=== PATIENT | female | born 1940 | race Caucasian/White ===

== ENCOUNTER 2018-11-03 09:27 | Emergency (ER) | payer MEDICARE | END 2018-11-03 09:48 | disposition left against medical advice (07) | LOC: UCEAST 09:27 | DX: Z53.21 Procedure and treatment not carried out due to patient leaving prior to being seen by health care provider (principal) ==

== ENCOUNTER 2018-11-03 10:05 | Emergency (ER) | payer MEDICARE ==
[2018-11-03] MEDS ORDERED: Pantoprazole IV* 40 MG IV ONE (10:37)
[2018-11-03] MEDS ORDERED: NS 0.9% 1000 ML** 1,000 ML IV ONE (10:37)
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
[2018-11-03 11:23] LABS: ABS Basophils 0 10^3/ul (0-0.2); ABS Eosinophils 0 10^3/ul (0-0.6); ABS Monocytes 0.4 10^3/ul (0-0.8); ABS Neutrophils 4.7 10^3/ul (1.5-7.7); ABS Nucleated RBC 0 10^3/ul; Eosinophil % 0.3 %; Hematocrit 39 % (33-41); Lymphocyte % 16.7 %; Mean Corpuscular HGB Conc 33 g/dL (31-36); Mean Corpuscular Hemoglobin 31 pg (27-31); Mean Corpuscular Volume 95 fL (80-97); Mean Platelet Volume 7.6 fL (7.4-10.4); Nucleated Red Blood Cells % 0; Platelet Count 212 10^3/uL (150-450); Red Blood Count 4.17 10^6 /uL (3.70-4.87); Red Cell Distribution Width 14 % (10.5-15); White Blood Count 6.2 10^3/uL (3.5-10.8)
[2018-11-03 11:39] LABS: ALT 24 U/L (7-52); AST 26 U/L (13-39); Albumin 4.3 g/dL (3.2-5.2); Albumin/Globulin Ratio 1.7 (1-3); Alkaline Phosphatase 72 U/L (34-104); Anion Gap 9 mmol/L (2-11); BUN/Creatinine Ratio 21.1 (8-20); Blood Urea Nitrogen 15 mg/dL (6-24); C Reactive Protein < 1.00 mg/L (<8.01); CO2 Carbon Dioxide 27 mmol/L (22-32); Calcium 9.6 mg/dL (8.6-10.3); Chloride 104 mmol/L (101-111); EGFR African American 96.8 (>60); Globulin 2.6 g/dL (2-4); Glucose 98 mg/dL (70-100); Magnesium 2.1 mg/dL (1.9-2.7); Potassium 3.6 mmol/L (3.5-5.0); Sodium 140 mmol/L (135-145); Total Protein 6.9 g/dL (6.4-8.9)
[2018-11-03 12:13] LABS: Urine Appearance Clear; Urine Bilirubin Negative (Negative); Urine Blood Negative (Negative); Urine Color Straw; Urine Glucose Negative (Negative); Urine Ketones Trace (Negative); Urine Nitrite Negative (Negative); Urine Protein Negative (Negative); Urine Specific Gravity 1.005 (1.010-1.030); Urine Urobilinogen Negative (Negative)
[2018-11-03] MEDS ORDERED: Ketorolac INJ* 30 MG/ML 1 ML VIAL IV PUSH ONE (12:39)
[2018-11-03 13:25] VITALS: BP 145/73
== END 2018-11-03 13:25 | disposition home or self-care (01) ==
LOC: ED 10:05
DX: R10.13 Epigastric pain (principal)
CPT/HCPCS: 36415; 74176; 80053; 81003; 82272; 83605; 83690; 83735; 85025; 86140; 93005; 96361; 96374; 96375; 99283; J1885

== ENCOUNTER 2019-03-07 10:09 | Emergency (ER) | payer MEDICARE ==
[2019-03-07 10:27] VITALS: BP 148/74
--- OUTSIDE RECORDS SUMMARY | 2019-03-07 10:38 | XMS REPORT | Continuity of Care Document ---
:1940 External Reference #:[id number] Author Name Ely Mayen Care Team Providers Name Role Phone Genesis Machuca MD Primary Care Physician Unavailable Payers Date Identification Numbers Payment Provider Subscriber Effective: 2017 Policy Number: [id number] Medicare Blue Ppo Sandra Portillo PayID: [id number] [address] [address] [place] [address] Problems Active Problems Provider Date Paroxysmal atrial fibrillation Genesis Machuca MD Onset: 11/08/2018 Note: Coumadin since 2005; Event monitor for a month was negative in 2014 and she was completely asymptomatic so she was taken off. 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 Aren Stafford ([email or web address]) Intestinal malabsorption Genesis Machuca MD Onset: 11/08/2018 Age related macular degeneration Genesis Machuca MD Onset: 11/08/2018 Raynaud's disease Genesis Machuca MD Onset: 11/08/2018 Dyspnea Genesis Machuca MD Onset: 11/08/2018 Osteoporosis Genesis Machuca MD Onset: 11/08/2018 Note: osteoporosis of wrist 2015; Frax 17/7.9; refused medication 2015 Social History Type Date Description Comments Sex Unknown Marital Status Lives With Spouse Occupation Retired Occupation Nurse Tobacco Use Start: Unknown Never Smoked Cigarettes Smoking Status Reviewed: 02/18/19 Never Smoked Cigarettes ETOH Use Denies alcohol use Tobacco Use Start: Unknown Patient has never smoked Recreational Drug Use Denies Drug Use Exercise Type/Frequency Does not exercise Allergies, Adverse Reactions, Alerts Active Allergies Reaction Severity Comments Date Anesthesia FEATHER SHAPER reaction 05/09/2018 Budesonide Nausea and Vomiting 05/09/2018 Clindamycin Nausea and Vomiting 05/09/2018 [place] Starch Nausea and Vomiting 05/09/2018 Dobutamine 05/09/2018 Flagyl Nausea and Vomiting 05/09/2018 IV Contrast skin reaction 05/09/2018 Milk- Nausea and Vomiting 05/09/2018 Omeprazole Nausea and Vomiting 05/09/2018 Opiod Analgesic FEATHER SHAPER reaction 05/09/2018 Pentasa Nausea and Vomiting 05/09/2018 Dabigatran skin reaction 05/09/2018 Zantac FEATHER SHAPER reaction 05/09/2018 Fentanyl And Related 07/17/2018 Banana Extract 08/06/2018 [place] Allergenic Extract 08/06/2018 Gluten 08/06/2018 Starch, Rice 08/06/2018 Medications Active Medications SIG Qnty Indications Ordering Provider Date Doxazosin Mesylate 1/2 tab by mouth Unknown 2mg as needed Tablets Acetaminophen ER take one tab by Unknown 650mg mouth every 4 Tablets ER hours as needed Vitamin E-200 1 by mouth every Unknown 200Unit day Capsules Vitamin B12 1 by mouth every Unknown 1000mcg Tablets day ER Coq10 daily Unknown 1200-1800mg Capsules Claritin 1 by mouth every Unknown 10mg Capsules day as needed Folic Acid 2 by mouth twice Unknown 1mg Tablets a day Flonase Allergy Relief one spray in each Unknown nostril 1-2 times 50mcg/Act Suspension daily. Creatine as directed Unknown Powder Vitamin D3 1 by mouth every Unknown 1000Unit Tablets day Ascorbic Acid 1 by mouth every Unknown 500mg Tablets day Miralax 17 gm every day Unknown 3350NF Powder mixed w/ 8 oz water/juice Preservision Areds 1tab by mouth Unknown twice a day Capsules Magnesium 1 by mouth every Unknown 400mg Tablets day History Medications Prednisone take 4 tabs by mouth Unknown - 08/06/2018 10mg Tablets daily for 2 days then 3 tabs daily for 2 days then 2 tabs for 2 days then 1 tab for 2 days then d/c Tylenol Extra Strength 2 by mouth as needed Unknown - 2017 500mg Tablets every 8 hours Cyanocobalamin 1 by mouth every day Unknown - Unknown Tablets Sub Carnitor 10ml twice a day Unknown - Unknown 1GM/10ML Solution Ativan take 1 tablet every 4 Unknown - Unknown 0.5mg Tablets hours hours as needed for anxiety Levocarnitine 5 mil x2 daily Unknown - 02/17/2019 1GM/10ML Solution Vital Signs Date Vital Result Comment 02/18/2019 2:27pm Height 62.5 inches 5'2.50" Weight 92.00 lb Heart Rate 73 /min BP Systolic Sitting 115 mmHg BP Diastolic Sitting 65 mmHg Respiratory Rate 16 /min Body Temperature 98.7 F O2 % BldC Oximetry 99 % BMI (Body Mass Index) 16.6 kg/m2 02/01/2019 9:56am Height 62.5 inches 5'2.50" Weight 91.00 lb Heart Rate 84 /min BP Systolic 123 mmHg BP Diastolic 71 mmHg O2 % BldC Oximetry 98 % BMI (Body Mass Index) 16.4 kg/m2 01/24/2019 11:09am Height 62.5 inches 5'2.50" Weight 91.25 lb pt own scale this am Heart Rate 80 /min BP Systolic Sitting 113 mmHg BP Diastolic Sitting 68 mmHg Body Temperature 97.4 F O2 % BldC Oximetry 96 % BMI (Body Mass Index) 16.4 kg/m2 11/06/2018 9:40am Height 62.5 inches 5'2.50" Weight 92.25 lb pt. states at home today Heart Rate 89 /min BP Systolic Sitting 127 mmHg BP Diastolic Sitting 70 mmHg Body Temperature 98.1 F Pain Level 2 abdomen/gut O2 % BldC Oximetry 98 % BMI (Body Mass Index) 16.6 kg/m2 08/06/2018 1:24pm Height 62.5 inches 5'2.50" Weight 94.00 lb Heart Rate 84 /min BP Systolic 124 mmHg BP Diastolic 77 mmHg Body Temperature 97.6 F O2 % BldC Oximetry 99 % BMI (Body Mass Index) 16.9 kg/m2 07/17/2018 9:07am Height 62.5 inches 5'2.50" Weight 95.38 lb pt. states this a.m. Heart Rate 79 /min BP Systolic Sitting 135 mmHg BP Diastolic Sitting 77 mmHg Body Temperature 98.6 F Pain Level 2 Right side jaw at ear O2 % BldC Oximetry 98 % BMI (Body Mass Index) 17.2 kg/m2 05/10/2018 8:41am Height 62.5 inches 5'2.50" Weight 97.31 lb Heart Rate 84 /min BP Systolic 124 mmHg BP Diastolic 68 mmHg Respiratory Rate 16 /min Body Temperature 97.6 F BMI (Body Mass Index) 17.5 kg/m2 Results Test Date Facility Test Result H/L Range Note CBC Auto Diff 02/01/2019 [facility] White Blood 5.5 10^3/uL N 3.5-10.[address] [place] [address] [phone] Red Blood Count 4.20 10^6/uL N 3.70-4.87 Hemoglobin 13.4 g/dL N 12.0-16.0 Hematocrit 40 % N 35-47 Mean Corpuscular Volume 96 fL N 80-97 Mean Corpuscular Hemoglobin 32 pg High 27-31 Mean Corpuscular HGB Conc 33 g/dL N 31-36 Red Cell Distribution Width 14 % N 10-15 Platelet Count 212 10^3/uL N 150-450 Mean Platelet Volume 8.1 fL N 7.4-10.4 Abs Neutrophils 3.7 10^3/uL N 1.5-7.7 Abs Lymphocytes 1.3 10^3/uL N 1.0-4.8 Abs Monocytes 0.5 10^3/uL N 0-0.8 Abs Eosinophils 0.0 10^3/uL N 0-0.6 Abs Basophils 0.0 10^3/uL N 0-0.2 Abs Nucleated RBC 0.0 10^3/uL Granulocyte % 66.6 % Lymphocyte % 23.5 % Monocyte % 8.3 % Eosinophil % 0.8 % Basophil % 0.8 % Nucleated Red Blood Cells % 0.0 Laboratory test finding 02/01/2019 [facility] Amylase 47 U/L N 29-[address] [place] [address] [phone] Lipase 27 U/L N 11.0-82.0 Comp Metabolic Panel 11/03/2018 [facility] Sodium 140 mmol/L N 135-[address] [place] [address] [phone] Potassium 3.6 mmol/L N 3.5-5.0 Chloride 104 mmol/L N 101-111 Co2 Carbon Dioxide 27 mmol/L N 22-32 Anion Gap 9 mmol/L N 2-11 Glucose 98 mg/dL N 70-100 Blood Urea Nitrogen 15 mg/dL N 6-24 Creatinine 0.71 mg/dL N 0.51-0.95 BUN/Creatinine Ratio 21.1 High 8-20 Calcium 9.6 mg/dL N 8.6-10.3 Total Protein 6.9 g/dL N 6.4-8.9 Albumin 4.3 g/dL N 3.2-5.2 Globulin 2.6 g/dL N 2-4 Albumin/Globulin Ratio 1.7 N 1-3 Total Bilirubin 0.50 mg/dL N 0.2-1.0 Alkaline Phosphatase 72 U/L N 34-104 Alt 24 U/L N 7-52 Ast 26 U/L N 13-39 Egfr Non- 80.0 >60 Egfr 96.8 >60 1 Laboratory test 11/03/2018 [facility] Magnesium 2.1 mg/dL N 1.9-2.[address] [place] [address] [phone] Lipase 24 U/L N 11.0-82.0 C Reactive Protein < 1.00 mg/L N <8.01 Lactic Acid 0.9 mmol/L N 0.5-2.0 2 CBC Auto Diff 11/03/2018 [facility] White Blood 6.2 10^3/uL N 3.5-10.[address] [place] [address] [phone] Red Blood Count 4.17 10^6/uL N 3.70-4.87 Hemoglobin 13.0 g/dL N 12.0-16.0 Hematocrit 39 % N 33-41 Mean Corpuscular Volume 95 fL N 80-97 Mean Corpuscular Hemoglobin 31 pg N 27-31 Mean Corpuscular HGB Conc 33 g/dL N 31-36 Red Cell Distribution Width 14 % N 10.5-15 Platelet Count 212 10^3/uL N 150-450 Mean Platelet Volume 7.6 fL N 7.4-10.4 Abs Neutrophils 4.7 10^3/uL N 1.5-7.7 Abs Lymphocytes 1.0 10^3/uL N 1.0-4.8 Abs Monocytes 0.4 10^3/uL N 0-0.8 Abs Eosinophils 0 10^3/uL N 0-0.6 Abs Basophils 0 10^3/uL N 0-0.2 Abs Nucleated RBC 0 10^3/uL Granulocyte % 76.4 % Lymphocyte % 16.7 % Monocyte % 5.9 % Eosinophil % 0.3 % Basophil % 0.7 % Nucleated Red Blood Cells % 0 Urinalysis Profile 11/03/2018 [facility] Urine Color Straw [address] [place] [address] [phone] Urine Appearance Clear Urine Specific Bradford 1.005 Low 1.010-1.030 Urine pH 7.0 N 5-9 Urine Urobilinogen Negative Negative Urine Ketones Trace Abnormal Negative Urine Protein Negative Negative Urine Leukocytes Negative Negative Urine Blood Negative Negative Urine Nitrite Negative Negative Urine Bilirubin Negative Negative Urine Glucose Negative Negative Stool Occult Blood 11/03/2018 [facility] Stool Occult SEE RESULT [address] Blood, [place] [address] [phone] Laboratory test 05/10/2018 [facility] Surgical SEE RESULT [address] [place] [address] [phone] 1 Because ethnic data is not always readily available, this report includes an eGFR for both -Americans and non- Americans. The National Kidney Disease Education Program (NKDEP) does not endorse the use of the MDRD equation for patients that are not between the ages of 18 and 70, are , have extremes of body size, muscle mass, or nutritional status, or are non- or non-. According to the National Kidney Foundation, irrespective of diagnosis, the stage of the disease is based on the level of kidney function: Stage Description GFR(mL/min/1.73 m(2)) 1 Kidney damage with normal or decreased GFR 90 2 Kidney damage with mild decrease in GFR 60-89 3 Moderate decrease in GFR 30-59 4 Severe decrease in GFR 15-29 5 Kidney failure <15 (or dialysis) 2 OHS Severe Sepsis and Septic Shock Management Bundle Measure requires all lactic acids initially measuring >2.0 mmol/L be repeated. 3 SEE RESULT BELOW Name: SANDRA PORTILLO : [address]: Devin Lentz MD Acct: [id number] Unit: [id number] AGE: 78 Location: ED Re11/03/18 SEX: F Status: REG ER SPEC: [id number] JENNIFER: 11/03/18-[address] [facility] [address]: Devin Lentz MD REQ: [id number] RECD: 11/03/18 STATUS: ANA LUISA NELSON DR: Genesis Machuca MD _ SOURCE: STOOL SPDESC: ORDERED: Occult Bl, Diag Procedure Result Reported Site Stool Occult Blood (1) Final 11/03/18- 1045 ML Stool Occult Blood Negative * ML - Main Lab . END OF REPORT DEPARTMENT OF PATHOLOGY, [address] [place] [address] Jian Leiva M.D. Director [facility] # [id number] 4 SEE RESULT BELOW Name: SANDRA PORTILLO : [address]: Saurabh Nixon MD Acct: [id number] Unit: [id number] AGE: 78 Location: [facility] Re05/10/18 SEX: F Status: REG REF SPEC: [id number] JENNIFER: 05/10/18-[address] [facility] [address]: Saurabh Nixon MD REQ: [id number] RECD: 05/10/18-1210 STATUS: CLAIR NELSON DR: Aren Stafford Jr, MD _ ORDERED: LEVEL 4 COMMENTS: [id number] FINAL DIAGNOSIS Right temporal artery, biopsy: -- Benign arterial tissue with no significant pathologic abnormalities; see comment. COMMENT: Histologic sections show muscular arterial tissue with an intact internal elastic lamina and no evidence of significant inflammation. 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 CLINICAL HISTORY No history given GROSS DESCRIPTION The specimen is received in formalin labeled, Right Temporal Artery Biopsy, and consists of a 1.8 x 0.1 cm nicholas tubular soft tissue fragment which is serially sectioned and entirely submitted in one cassette. Signed by and Reported on: Alina Murry MD 05/11/18 0945 END OF REPORT DEPARTMENT OF PATHOLOGY, [address] [place] [address] Jian Leiva M.D. 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 Office Visit 01/24/2019 [facility] Internal Medicine - Genesis Machuca, R10.84 Generalized 11:00a Cielo ROGERS abdominal pain Office Visit 11/06/2018 [facility] Internal Medicine - [facility] Sven, I73.00 Raynaud's 9:40a Cielo ROGERS syndrome without gangrene I48.0 Paroxysmal atrial fibrillation K90.49 Malabsorption due to intolerance, not elsewhere classified G71.3 Mitochondrial myopathy, not elsewhere classified R10.13 Epigastric pain Office Visit 08/06/2018 1:30p [facility] Internal Genesisadalberto Machuca, R06.02 Shortness of breath Medicine - MD Niob Office Visit 07/17/2018 9:00a [facility] Internal Genesis Machuca, G71.3 Mitochondrial Medicine - MD myopathy, not Ccmob elsewhere classified K90.49 Malabsorption due to intolerance, not elsewhere classified H35.30 Unspecified macular degeneration I48.0 Paroxysmal atrial fibrillation I73.00 Raynaud's syndrome without gangrene Z12.11 Encounter for screening for malignant neoplasm of colon Z12.31 Encntr screen mammogram for malignant neoplasm of breast Plan of Treatment Future Appointment(s):04/05/2019 9:15 am - Rocco Lancaster MD at [facility] Gastroenterology
--- OUTSIDE RECORDS SUMMARY | 2019-03-07 10:38 | XMS REPORT | Continuity of Care Document ---
:1940 External Reference #:[id number] Author Name AmandeepuriLisa Care Team Providers Name Role Phone Genesis Machuca MD Primary Care Physician Unavailable Payers Date Identification Numbers Payment Provider Subscriber Effective: 2017 Policy Number: [id number] Medicare Blue Ppo Sandra Portillo PayID: [id number] [address] [address] [place] [address] Problems Active Problems Provider Date Paroxysmal atrial fibrillation Genesis Machuca MD Onset: 11/08/2018 Note: Coumadin since 2005; Event monitor for a month was negative in 2014 and she was completely asymptomatic so she was taken off. 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 Aren Stafford ([email or web address]) Intestinal malabsorption Genesis Machuca MD Onset: 11/08/2018 [...] Unknown Never Smoked Cigarettes Smoking Status Reviewed: 03/01/19 Never Smoked Cigarettes ETOH Use Denies alcohol use Tobacco Use Start: Unknown Patient has never smoked Recreational Drug Use Denies Drug Use Exercise Type/Frequency Does not exercise Allergies, Adverse Reactions, Alerts Active Allergies Reaction Severity Comments Date Anesthesia Malignant hyperthermia Severe 05/09/2018 Budesonide Nausea and Vomiting 05/09/2018 Clindamycin Nausea and Vomiting 05/09/2018 [place] Starch Nausea and Vomiting 05/09/2018 Dobutamine 05/09/2018 Flagyl Nausea and Vomiting 05/09/2018 IV Contrast skin reaction 05/09/2018 Milk- Nausea and Vomiting 05/09/2018 Omeprazole Nausea and Vomiting 05/09/2018 Opiod Analgesic CELLAR SUPERVISOR reaction 05/09/2018 Pentasa Nausea and Vomiting 05/09/2018 Dabigatran skin reaction 05/09/2018 Zantac CELLAR SUPERVISOR reaction 05/09/2018 Fentanyl And Related 07/17/2018 Banana Extract 08/06/2018 [place] Allergenic Extract 08/06/2018 Gluten 08/06/2018 Starch, Rice [...] Solution Vital Signs Date Vital Result Comment 03/01/2019 10:38am Height 62.5 inches 5'2.50" Weight 90.00 lb Heart Rate 78 /min BP Systolic Sitting 126 mmHg BP Diastolic Sitting 74 mmHg Body Temperature 97.9 F O2 % BldC Oximetry 98 % BMI (Body Mass Index) 16.2 kg/m2 02/18/2019 2:27pm Height 62.5 inches 5'2.50" Weight [...] H/L Range Note CBC Auto Diff 02/01/2019 [facility] White Blood 5.5 10^3/uL N 3.5-10.[address] [place] [address] [phone] Red Blood Count 4.20 10^6/uL N 3.70-4.87 [...] Cells % 0.0 Laboratory test finding 02/01/2019 [facility] Amylase 47 U/L N 29-[address] [place] [address] [phone] Lipase 27 U/L N 11.0-82.0 Comp Metabolic Panel 11/03/2018 [facility] Sodium 140 mmol/L N 135-[address] [place] [address] [phone] Potassium 3.6 mmol/L N 3.5-5.0 Chloride 104 [...] Egfr 96.8 >60 1 Laboratory test 11/03/2018 [facility] Magnesium 2.1 mg/dL N 1.9-2.[address] [place] [address] [phone] Lipase 24 U/L N 11.0-82.0 C Reactive Protein < 1.00 mg/L N <8.01 Lactic Acid 0.9 mmol/L N 0.5-2.0 2 CBC Auto Diff 11/03/2018 [facility] White Blood 6.2 10^3/uL N 3.5-10.[address] [place] [address] [phone] Red Blood Count 4.17 10^6/uL N 3.70-4.87 [...] Blood Cells % 0 Urinalysis Profile 11/03/2018 [facility] Urine Color Straw [address] [place] [address] [phone] Urine Appearance Clear Urine Specific [place] 1.005 Low 1.010-1.030 Urine pH 7.0 N 5-9 Urine Urobilinogen Negative Negative Urine Ketones Trace Abnormal Negative Urine Protein Negative Negative Urine Leukocytes Negative Negative Urine Blood Negative Negative Urine Nitrite Negative Negative Urine Bilirubin Negative Negative Urine Glucose Negative Negative Stool Occult Blood 11/03/2018 [facility] Stool Occult SEE RESULT [address] Blood, [place] [address] [phone] Laboratory test 05/10/2018 [facility] Surgical SEE RESULT [address] [place] [address] [phone] 1 Because ethnic data is not always [...] 5 Kidney failure <15 (or dialysis) 2 [place] Severe Sepsis and Septic Shock Management Bundle Measure requires all lactic acids initially measuring >2.0 mmol/L be repeated. 3 SEE RESULT BELOW Name: SANDRA PORTILLO : [address]: Devin Lentz MD Acct: [id number] Unit: [id number] AGE: 78 Location: ED Re11/03/18 SEX: F Status: REG ER SPEC: [id number] JENNIFER: 11/03/18-1030 [facility] DR: Devin Lentz MD REQ: [id number] RECD: 11/03/18-1040 STATUS: COMP MEHDIHR DR: Genesis Machuca MD _ SOURCE: STOOL SPDESC: ORDERED: Occult Bl, Diag Procedure Result Reported Site Stool Occult Blood (1) Final 11/03/18- 1045 ML Stool Occult Blood Negative * ML - Main Lab . END OF REPORT DEPARTMENT OF PATHOLOGY, [address] [place] [address] Jian Leiva M.D. Director [facility] # [id number] 4 SEE RESULT BELOW Name: SANDRA PORTILLO : [address]: Saurabh Nixon MD Acct: [id number] Unit: [id number] AGE: 78 Location: [facility] Re05/10/18 SEX: F Status: REG REF SPEC: [id number] JENNIFER: 05/10/18-[address] [facility] DR: Saurabh Nixon MD REQ: [id number] RECD: 05/10/18-1210 STATUS: CLAIR NELSON DR: Aren Stafford Jr, MD _ ORDERED: LEVEL 4 COMMENTS: [id number] FINAL DIAGNOSIS Right temporal artery, biopsy: -- [...] 0945 END OF REPORT DEPARTMENT OF PATHOLOGY, [address] [place] [address] Jian Leiva M.D. Director [facility] # [id number] Procedures Date Code Description Status 05/10/2018 59999 Ligation Or Biopsy Temporal Artery Completed 08/21/2011 33311590 Colonoscopy Completed Encounters Type Date Location Provider Dx Diagnosis Office Visit 02/18/2019 [facility] Gastroenterology Selam Aguilera NP R10.13 Epigastric pain 2:30p G71.3 Mitochondrial myopathy, not elsewhere classified R10.84 Generalized abdominal pain R64 Cachexia R63.4 Abnormal weight loss Office Visit 02/01/2019 [facility] Gastroenterology Selam R10.11 Right upper 9:45a MINA Aguilera quadrant pain Office Visit 01/24/2019 [facility] Internal Medicine Genesis Sven, R10.84 Generalized 11:00a - Cielo ROGERS abdominal pain Office Visit 11/06/2018 [facility] Internal Medicine Genesis Cornejoaz, I73.00 Raynaud' s 9:40a - Cielo ROGERS syndrome without gangrene I48.0 Paroxysmal atrial fibrillation K90.49 Malabsorption due to intolerance, not elsewhere classified G71.3 Mitochondrial myopathy, not elsewhere classified R10.13 Epigastric pain Office Visit 08/06/2018 1:30p [facility] Internal Genesis Sven, R06.02 Shortness of breath Medicine - MD Ccmob Office Visit 07/17/2018 9:00a [facility] Internal Genesis Cornejoaz, G71.3 Mitochondrial Medicine - MD myopathy, not Ccmob elsewhere classified K90.49 Malabsorption due to intolerance, not elsewhere classified H35.30 Unspecified macular degeneration I48.0 Paroxysmal atrial fibrillation I73.00 Raynaud's syndrome without gangrene Z12.11 Encounter for screening for malignant neoplasm of colon Z12.31 Encntr screen mammogram for malignant neoplasm of breast Plan of Treatment Future Appointment(s):04/03/2019 8:15 am - Rocco Lancaster MD at [facility] [id number]/16/2019 9:15 am - Rocco Lancaster MD at [facility] Gastroenterology
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
[2019-03-07 12:05] LABS: ABS Lymphocytes 1.4 10^3/ul (1.0-4.8); ABS Monocytes 0.4 10^3/ul (0-0.8); ABS Neutrophils 3.1 10^3/ul (1.5-7.7); Eosinophil % 0.9 %; Hematocrit 39 % (35-47); Lymphocyte % 27.7 %; Mean Corpuscular HGB Conc 34 g/dL (31-36); Mean Corpuscular Hemoglobin 32 pg (27-31); Mean Corpuscular Volume 96 fL (80-97); Mean Platelet Volume 7.3 fL (7.4-10.4); Nucleated Red Blood Cells % 0.1; Platelet Count 186 10^3/uL (150-450); Red Blood Count 4.06 10^6 /uL (3.70-4.87); Red Cell Distribution Width 14 % (10-15); White Blood Count 4.9 10^3/uL (3.5-10.8)
== END 2019-03-07 12:12 | disposition home or self-care (01) ==
LOC: ED 10:09
DX: R19.7 Diarrhea, unspecified (principal); I73.00 Raynaud's syndrome without gangrene; Z79.899 Other long term (current) drug therapy; Z88.5 Allergy status to narcotic agent; Z88.8 Allergy status to other drugs, medicaments and biological substances; Z88.4 Allergy status to anesthetic agent; Z88.1 Allergy status to other antibiotic agents; Z91.041 Radiographic dye allergy status
CPT/HCPCS: 36415; 82270; 85025; 99282

== ENCOUNTER 2022-09-08 13:40 | Observation (INO) ==
[2022-09-08] MEDS ORDERED: Ondansetron 4 mg VIAL 2 MG/ML 2 ml VIAL IV ONE (14:25)
[2022-09-08] MEDS ORDERED: NS 0.9% 1000 ml BAG 1,000 ML IV ONE (14:25)
[2022-09-08 15:04] LABS: ABS Lymphocytes 0.7 10^3/ul (1.0-4.8); ABS Monocytes 0.4 10^3/ul (0-0.8); ABS Neutrophils 8.3 10^3/ul (1.5-7.7); Eosinophil % 0.2 %; Hematocrit 29 % (35-47); Hemoglobin 9.6 g/dL (12.0-16.0); Lymphocyte % 7.8 %; Mean Corpuscular HGB Conc 33 g/dL (31-36); Mean Corpuscular Hemoglobin 32 pg (27-31); Mean Corpuscular Volume 97 fL (80-97); Mean Platelet Volume 7.1 fL (7.4-10.4); Platelet Count 390 10^3/uL (150-450); Red Blood Count 3.03 10^6 /uL (3.70-4.87); Red Cell Distribution Width 16 % (10-15); White Blood Count 9.6 10^3/uL (3.5-10.8)
[2022-09-08 15:55] LABS: Albumin 3.8 g/dL (3.2-5.2); Albumin/Globulin Ratio 1.7 (1-3); C Reactive Protein 10.69 mg/L (<8.01); Calcium 9.3 mg/dL (8.6-10.3); Globulin 2.2 g/dL (2-4); Potassium 4.1 mmol/L (3.5-5.0); Total Bilirubin 0.4 mg/dL (0.2-1.0); eGFR CKD-EPI 91.8 (>60)
[2022-09-08 16:46] LABS: Urine Appearance Clear; Urine Bilirubin Negative (Negative); Urine Blood Negative (Negative); Urine Color Yellow; Urine Glucose Negative (Negative); Urine Ketones Trace (Negative); Urine Nitrite Negative (Negative); Urine Protein Negative (Negative); Urine Urobilinogen Negative (Negative)
[2022-09-08] MEDS ORDERED: Pantoprazole 80 mg in NS BAG 80 MG/250 ML BAG IV ONE (17:35)
[2022-09-08] MEDS ORDERED: Pantoprazole VIAL 40 MG VIAL IV ONE (17:35)
[2022-09-08] MEDS ORDERED: Magnesium Hydroxide LIQ 30 ML UDC PO PRN (20:12)
[2022-09-08 21:30] LABS: Hematocrit 24 % (35-47); Hemoglobin 7.8 g/dL (12.0-16.0)
[2022-09-08] MEDS ORDERED: Acetaminophen IV 1 GM/100ML 600 MG/60 ML BAG IV PRN (23:14)
[2022-09-08 23:55] LABS: Ferritin 48.6 ng/mL (11-307)
[2022-09-09 01:41] LABS: Hematocrit 26 % (35-47); Hemoglobin 8.3 g/dL (12.0-16.0)
[2022-09-09 06:17] LABS: Hematocrit 24 % (35-47); Hemoglobin 8.2 g/dL (12.0-16.0); Mean Corpuscular HGB Conc 34 g/dL (31-36); Mean Corpuscular Hemoglobin 33 pg (27-31); Mean Corpuscular Volume 97 fL (80-97); Mean Platelet Volume 7.3 fL (7.4-10.4); Platelet Count 338 10^3/uL (150-450); Red Cell Distribution Width 16 % (10-15); White Blood Count 7.4 10^3/uL (3.5-10.8)
[2022-09-09 06:19] LABS: ABS Monocytes 0.5 10^3/ul (0-0.8); ABS Neutrophils 5.9 10^3/ul (1.5-7.7); Eosinophil % 0.6 %; Lymphocyte % 13.7 %
[2022-09-09 06:33] LABS: Calcium 8.5 mg/dL (8.6-10.3); Potassium 3.9 mmol/L (3.5-5.0)
[2022-09-09] MEDS: KCL 10 MEQ/50 ML IVPREMIX 10 MEQ/50 ML BAG IV ONE ×2 (08:55→10:15)
[2022-09-09 11:25] VITALS: BP 112/64
[2022-09-09 12:54] LABS: Corrected Retic Count 1.1 % (0.5-1.5); Hematocrit for Retic CNT 24 % (35-47); Immature Retic Fraction 0.53; RBC Retic Count 2.47 10^6/uL (3.70-4.87)
[2022-09-09 13:06] LABS: Folate 9.65 ng/mL (5.90-24.80)
[2022-09-09] MEDS ORDERED: Pantoprazole 80 mg in NS BAG 80 MG/250 ML BAG IV SCH (16:00)
[2022-09-12 22:36] LABS: Tissue Transglutaminase IgA Ab <1.2 U/mL
[2022-09-12 22:53] LABS: Immunoglobulin A 140 mg/dL (61 - 356)
== END 2022-09-09 18:15 | disposition home or self-care (01) ==
LOC: EDHOLD 13:40 → ED 13:40 → SUATTDRO 18:31 → EDHOLD 09-09 00:22 → SSU 09-09 00:52
PROVIDERS: ADMIT Internal Medicine; ATTEND Internal Medicine

== ENCOUNTER 2022-09-20 10:49 | Inpatient (IN) ==
[2022-09-20 13:07] LABS: Hematocrit 19 % (35-47); Hemoglobin 6.2 g/dL (12.0-16.0); Mean Corpuscular HGB Conc 32 g/dL (31-36); Mean Corpuscular Hemoglobin 32 pg (27-31); Mean Corpuscular Volume 98 fL (80-97); Platelet Count 433 10^3/uL (150-450); Red Blood Count 1.97 10^6 /uL (3.70-4.87); Red Cell Distribution Width 17 % (10-15); White Blood Count 5.2 10^3/uL (3.5-10.8)
[2022-09-20 13:49] LABS: Albumin 3.6 g/dL (3.2-5.2); Albumin/Globulin Ratio 1.6 (1-3); C Reactive Protein 4.64 mg/L (<8.01); Creatinine, Serum 0.61 mg/dL (0.51-0.95); Globulin 2.2 g/dL (2-4); Potassium 3.7 mmol/L (3.5-5.0); Total Bilirubin 0.2 mg/dL (0.2-1.0); Total Protein 5.8 g/dL (6.4-8.9); eGFR CKD-EPI 90.3 (>60)
[2022-09-20 13:52] LABS: ABS Basophils 0.1 10^3/ul (0-0.2); ABS Lymphocytes 0.9 10^3/ul (1.0-4.8); ABS Monocytes 0.3 10^3/ul (0-0.8); ABS Neutrophils 3.9 10^3/ul (1.5-7.7); Eosinophil % 0.5 %; Lymphocyte % 17.1 %
[2022-09-20] MEDS: COENZYME Q10 300 MG PO SCH ×2 (17:47→21:24)
[2022-09-20 18:25] LABS: TSH Ultra Thyroid Stim Horm 1.08 mcIU/mL (0.34-5.60)
[2022-09-20 18:27] LABS: Free T4 0.78 ng/dL (0.61-1.12)
[2022-09-20 18:37] LABS: Folate 11.55 ng/mL (5.90-24.80)
[2022-09-20] MEDS: Pantoprazole VIAL 40 MG VIAL IV SCH (21:21)
[2022-09-20] MEDS: Multivitamins/Minera Areds(NF) CAP PO SCH (21:24)
[2022-09-20] MEDS ORDERED: Haloperidol 5 mg/ml SDV IV/IM 5 MG/ML AMP IM PRN (22:06)
[2022-09-20] MEDS ORDERED: Haloperidol 5 mg/ml SDV IV/IM 5 MG/ML AMP IM ONE (22:06)
[2022-09-21 00:35] LABS: Hematocrit 25 % (35-47); Hemoglobin 7.8 g/dL (12.0-16.0); Mean Corpuscular HGB Conc 32 g/dL (31-36); Mean Corpuscular Hemoglobin 30 pg (27-31); Mean Corpuscular Volume 93 fL (80-97); Mean Platelet Volume 7.1 fL (7.4-10.4); Platelet Count 374 10^3/uL (150-450); Red Blood Count 2.65 10^6 /uL (3.70-4.87); Red Cell Distribution Width 22 % (10-15); White Blood Count 4.8 10^3/uL (3.5-10.8)
[2022-09-21 00:36] LABS: Corrected Retic Count 1.6 % (0.5-1.5); Hematocrit for Retic CNT 24 % (35-47); Immature Retic Fraction 0.58; RBC Retic Count 2.63 10^6/uL (3.70-4.87)
[2022-09-21 06:09] LABS: ABS Basophils 0.1 10^3/ul (0-0.2); ABS Eosinophils 0.1 10^3/ul (0-0.6); ABS Lymphocytes 1.6 10^3/ul (1.0-4.8); ABS Monocytes 0.4 10^3/ul (0-0.8); ABS Neutrophils 3.3 10^3/ul (1.5-7.7); Eosinophil % 1.4 %; Hematocrit 23 % (35-47); Hemoglobin 7.6 g/dL (12.0-16.0); Lymphocyte % 28.8 %; Mean Corpuscular HGB Conc 33 g/dL (31-36); Mean Corpuscular Hemoglobin 31 pg (27-31); Mean Corpuscular Volume 92 fL (80-97); Mean Platelet Volume 7.2 fL (7.4-10.4); Platelet Count 368 10^3/uL (150-450); Red Blood Count 2.49 10^6 /uL (3.70-4.87); Red Cell Distribution Width 22 % (10-15); White Blood Count 5.4 10^3/uL (3.5-10.8)
[2022-09-21 06:25] LABS: Calcium 8.7 mg/dL (8.6-10.3); Creatinine, Serum 0.59 mg/dL (0.51-0.95); Potassium 3.7 mmol/L (3.5-5.0)
[2022-09-21] MEDS ORDERED: Propofol 0 MG/0 ML BTL ONE (07:46)
[2022-09-21] MEDS ORDERED: Lidocaine 2% PF 5 ML VIAL ONE (07:47)
[2022-09-21] MEDS ORDERED: Cyanocobalamin INJ 1,000 MCG/ML VIAL 1 ML VIAL IM ONE (08:30)
[2022-09-21] MEDS ORDERED: Propofol 10 MG/ML 20 ML BTL ONE (09:08)
[2022-09-21] MEDS: COENZYME Q10 300 MG PO SCH ×4 (11:15→19:57)
[2022-09-21] MEDS: Multivitamins/Minera Areds(NF) CAP PO SCH ×2 (11:16→19:57)
[2022-09-21] MEDS: Cholecalciferol (VIT D3) 1,000 unit TAB PO SCH (11:17)
[2022-09-21] MEDS: Pantoprazole VIAL 40 MG VIAL IV SCH ×2 (11:17→19:53)
[2022-09-21 17:21] LABS: Hematocrit 26 % (35-47); Hemoglobin 8.3 g/dL (12.0-16.0)
[2022-09-22 01:36] LABS: Hematocrit 22 % (35-47); Hemoglobin 7.3 g/dL (12.0-16.0)
[2022-09-22 06:07] LABS: ABS Eosinophils 0.1 10^3/ul (0-0.6); ABS Lymphocytes 1.3 10^3/ul (1.0-4.8); ABS Monocytes 0.4 10^3/ul (0-0.8); ABS Neutrophils 3.6 10^3/ul (1.5-7.7); Eosinophil % 1.7 %; Hematocrit 24 % (35-47); Lymphocyte % 23.6 %; Mean Corpuscular HGB Conc 34 g/dL (31-36); Mean Corpuscular Hemoglobin 31 pg (27-31); Mean Corpuscular Volume 92 fL (80-97); Mean Platelet Volume 7.3 fL (7.4-10.4); Platelet Count 392 10^3/uL (150-450); Red Blood Count 2.58 10^6 /uL (3.70-4.87); Red Cell Distribution Width 21 % (10-15); White Blood Count 5.4 10^3/uL (3.5-10.8)
[2022-09-22 07:47] VITALS: BP 114/71
[2022-09-22 08:06] LABS: Total Iron Binding Capacity 307 mcg/dL (250-450); Transferrin 219 mg/dL (203-362)
[2022-09-22 08:09] LABS: % Iron Saturation 7 % (15-55); Iron < 20 ug/dL (50-212); Unsaturated Iron Binding 287 ug/dL
[2022-09-22] MEDS: Cholecalciferol (VIT D3) 1,000 unit TAB PO SCH (09:15)
[2022-09-22] MEDS: Pantoprazole VIAL 40 MG VIAL IV SCH (09:15)
[2022-09-22] MEDS: Multivitamins/Minera Areds(NF) CAP PO SCH (09:17)
[2022-09-22] MEDS: COENZYME Q10 300 MG PO SCH (09:17)
[2022-09-22] MEDS ORDERED: Iron Sucrose 200 MG in NS 0.9% 100 ml BAG 100 ML IVPB ONE (10:00)
[2022-09-22 12:15] LABS: Ferritin 30.8 ng/mL (11-307)
== END 2022-09-22 11:15 | disposition home or self-care (01) | DRG 812 ==
LOC: ED 10:49 → SUATTDRO 16:35 → EDHOLD 16:35 → MED 23:56
PROVIDERS: ADMIT Family Medicine; ATTEND Student in an Organized Health Care Education/Training Program
PROC: O.GIEGD (2022-09-21 10:25)

== ENCOUNTER 2022-09-25 19:21 | Inpatient (IN) ==
[2022-09-25] MEDS ORDERED: NS 0.9% 1000 ml BAG 1,000 ML IV ONE (20:22)
[2022-09-25 20:26] LABS: INR 1.08 (0.88-1.18)
[2022-09-25 20:48] LABS: Hematocrit 17 % (35-47); Hemoglobin 5.3 g/dL (12.0-16.0); Mean Corpuscular HGB Conc 32 g/dL (31-36); Mean Corpuscular Hemoglobin 30 pg (27-31); Mean Corpuscular Volume 94 fL (80-97); Mean Platelet Volume 7.1 fL (7.4-10.4); Platelet Count 312 10^3/uL (150-450); Red Blood Count 1.78 10^6 /uL (3.70-4.87); Red Cell Distribution Width 20 % (10-15); White Blood Count 10.1 10^3/uL (3.5-10.8)
[2022-09-25 21:02] LABS: Albumin/Globulin Ratio 2.1 (1-3); Calcium 8.1 mg/dL (8.6-10.3); Creatinine, Serum 0.63 mg/dL (0.51-0.95); Globulin 1.4 g/dL (2-4); Potassium 3.5 mmol/L (3.5-5.0); Total Bilirubin 0.2 mg/dL (0.2-1.0); Total Protein 4.4 g/dL (6.4-8.9); eGFR CKD-EPI 89.6 (>60)
[2022-09-25 21:30] LABS: Venous Bicarbonate HCO3 24.5 mmol/L (24-28)
[2022-09-25 21:48] LABS: Anisocytosis 2+; Hypochromasia 1+
[2022-09-25 21:49] LABS: ABS Basophils 0.1 10^3/ul (0-0.2); ABS Monocytes 0.5 10^3/ul (0-0.8); ABS Neutrophils 8.5 10^3/ul (1.5-7.7); Eosinophil % 0.3 %; Lymphocyte % 10.2 %
[2022-09-25 21:57] LABS: Activated Partial Thrombo Time 25.3 seconds (26.0-38.0)
[2022-09-25 21:57] LABS: High Sensitivity Troponin 1 Hr 23 pg/mL (<15)
[2022-09-25 22:11] LABS: C Reactive Protein 20.75 mg/L (<8.01); Magnesium 1.9 mg/dL (1.9-2.7)
[2022-09-25] MEDS ORDERED: Pantoprazole VIAL 40 MG VIAL IV ONE (22:47)
[2022-09-25] MEDS ORDERED: Pantoprazole 80 mg in NS BAG 80 MG/250 ML BAG IV SCH (23:00)
[2022-09-25 23:01] LABS: Urine Appearance Clear; Urine Bilirubin Negative (Negative); Urine Blood Negative (Negative); Urine Color Straw; Urine Glucose Negative (Negative); Urine Ketones Negative (Negative); Urine Nitrite Negative (Negative); Urine Protein Negative (Negative); Urine Specific Gravity 1.006 (1.002-1.030); Urine Urobilinogen Negative (Negative)
[2022-09-26 05:16] LABS: ABS Eosinophils 0.1 10^3/ul (0-0.6); ABS Lymphocytes 1.1 10^3/ul (1.0-4.8); ABS Monocytes 0.5 10^3/ul (0-0.8); ABS Neutrophils 6.6 10^3/ul (1.5-7.7); Eosinophil % 0.7 %; Hematocrit 27 % (35-47); Lymphocyte % 13.3 %; Mean Corpuscular HGB Conc 34 g/dL (31-36); Mean Corpuscular Hemoglobin 30 pg (27-31); Mean Corpuscular Volume 89 fL (80-97); Mean Platelet Volume 6.7 fL (7.4-10.4); Platelet Count 289 10^3/uL (150-450); Red Blood Count 3.02 10^6 /uL (3.70-4.87); Red Cell Distribution Width 19 % (10-15); White Blood Count 8.3 10^3/uL (3.5-10.8)
[2022-09-26 05:54] LABS: C Reactive Protein 27.76 mg/L (<8.01); Calcium 8.2 mg/dL (8.6-10.3); Creatinine, Serum 0.54 mg/dL (0.51-0.95); Potassium 3.8 mmol/L (3.5-5.0)
[2022-09-26] MEDS ORDERED: Pantoprazole VIAL 40 MG VIAL IV SCH (11:00)
[2022-09-26] MEDS ORDERED: Ondansetron 4 mg VIAL 2 MG/ML 2 ml VIAL IV PRN (13:18)
[2022-09-26] MEDS ORDERED: Naloxone 0.4 mg VIAL 0.4 mg/ml 1 ml VIAL IV PRN (13:18)
[2022-09-26] MEDS ORDERED: HYDROcodone/ACETAMIN 5/325 mg TAB PO PRN (13:18)
[2022-09-26] MEDS ORDERED: Lidocaine 2% PF 5 ML VIAL ONE (13:38)
[2022-09-26] MEDS ORDERED: Lactulose 30 ml UDC PO SCH ×2 (14:00→21:00)
[2022-09-26 16:23] LABS: Hematocrit 28 % (35-47); Mean Corpuscular HGB Conc 33 g/dL (31-36); Mean Corpuscular Hemoglobin 29 pg (27-31); Mean Corpuscular Volume 89 fL (80-97); Mean Platelet Volume 6.7 fL (7.4-10.4); Platelet Count 297 10^3/uL (150-450); Red Blood Count 3.13 10^6 /uL (3.70-4.87); Red Cell Distribution Width 19 % (10-15); White Blood Count 9.2 10^3/uL (3.5-10.8)
[2022-09-26] MEDS: Pantoprazole 80 mg in NS BAG 80 MG/250 ML BAG IV SCH (17:36)
[2022-09-26] MEDS: Polyethylene Glycol 3350 17 GM PACKET PO SCH (20:12)
[2022-09-26] MEDS ORDERED: Polyethylene Glycol 3350 17 GM PACKET PO SCH (21:00)
[2022-09-27] MEDS: Pantoprazole 80 mg in NS BAG 80 MG/250 ML BAG IV SCH ×2 (03:16→14:34)
[2022-09-27 06:48] LABS: ABS Basophils 0.1 10^3/ul (0-0.2); ABS Eosinophils 0.1 10^3/ul (0-0.6); ABS Lymphocytes 1.3 10^3/ul (1.0-4.8); ABS Monocytes 0.4 10^3/ul (0-0.8); ABS Neutrophils 3.9 10^3/ul (1.5-7.7); Eosinophil % 2.1 %; Hematocrit 25 % (35-47); Hemoglobin 8.2 g/dL (12.0-16.0); Lymphocyte % 21.9 %; Mean Corpuscular HGB Conc 33 g/dL (31-36); Mean Corpuscular Hemoglobin 29 pg (27-31); Mean Corpuscular Volume 89 fL (80-97); Mean Platelet Volume 7.2 fL (7.4-10.4); Platelet Count 243 10^3/uL (150-450); Red Cell Distribution Width 19 % (10-15); White Blood Count 5.8 10^3/uL (3.5-10.8)
[2022-09-27 07:02] LABS: Calcium 8.1 mg/dL (8.6-10.3); Creatinine, Serum 0.56 mg/dL (0.51-0.95); Potassium 3.7 mmol/L (3.5-5.0); eGFR CKD-EPI 92.2 (>60)
[2022-09-27] MEDS ORDERED: Lactulose 30 ml UDC PO PRN (08:18)
[2022-09-27] MEDS: Polyethylene Glycol 3350 17 GM PACKET PO SCH ×2 (10:44→21:56)
[2022-09-28] MEDS: Pantoprazole 80 mg in NS BAG 80 MG/250 ML BAG IV SCH ×3 (00:45→22:36)
[2022-09-28 06:51] LABS: ABS Basophils 0.1 10^3/ul (0-0.2); ABS Eosinophils 0.2 10^3/ul (0-0.6); ABS Lymphocytes 1.3 10^3/ul (1.0-4.8); ABS Monocytes 0.4 10^3/ul (0-0.8); ABS Neutrophils 4.3 10^3/ul (1.5-7.7); Eosinophil % 2.5 %; Hematocrit 28 % (35-47); Hemoglobin 9.3 g/dL (12.0-16.0); Lymphocyte % 20.3 %; Mean Corpuscular HGB Conc 33 g/dL (31-36); Mean Corpuscular Hemoglobin 30 pg (27-31); Mean Corpuscular Volume 91 fL (80-97); Mean Platelet Volume 7.1 fL (7.4-10.4); Platelet Count 278 10^3/uL (150-450); Red Blood Count 3.08 10^6 /uL (3.70-4.87); Red Cell Distribution Width 19 % (10-15); White Blood Count 6.2 10^3/uL (3.5-10.8)
[2022-09-28 07:21] LABS: Calcium 8.3 mg/dL (8.6-10.3); Creatinine, Serum 0.62 mg/dL (0.51-0.95); Magnesium 2.1 mg/dL (1.9-2.7); Potassium 3.9 mmol/L (3.5-5.0)
[2022-09-28] MEDS: Polyethylene Glycol 3350 17 GM PACKET PO SCH ×3 (08:45→22:32)
[2022-09-29 06:21] LABS: Hematocrit 27 % (35-47); Hemoglobin 8.8 g/dL (12.0-16.0); Mean Corpuscular HGB Conc 32 g/dL (31-36); Mean Corpuscular Hemoglobin 30 pg (27-31); Mean Corpuscular Volume 91 fL (80-97); Mean Platelet Volume 7.4 fL (7.4-10.4); Platelet Count 277 10^3/uL (150-450); Red Blood Count 2.97 10^6 /uL (3.70-4.87); Red Cell Distribution Width 19 % (10-15); White Blood Count 5.1 10^3/uL (3.5-10.8)
[2022-09-29] MEDS: Polyethylene Glycol 3350 17 GM PACKET PO SCH (08:40)
[2022-09-29] MEDS: Pantoprazole 80 mg in NS BAG 80 MG/250 ML BAG IV SCH (11:04)
[2022-09-29 11:15] VITALS: BP 109/56
== END 2022-09-29 13:30 | disposition home or self-care (01) | DRG 384 ==
LOC: EDHOLD 19:21 → ED 19:21 → SUATTDRO 21:52 → MEDTELE 09-26 00:03 → SUATTDRO 09-26 11:00
PROVIDERS: ADMIT Internal Medicine; ATTEND Hospitalist
PROC: O.GIEGD (2022-09-26 13:55)